=== PATIENT | male | born 1945 | race Caucasian/White ===

== ENCOUNTER 2017-06-26 08:00 | Outpatient (CLI) | payer MEDICARE | END 2017-06-26 08:01 | disposition home or self-care (01) | LOC: LAB.R 08:00 | PROVIDERS: ATTEND Internal Medicine | DX: E03.9 Hypothyroidism, unspecified (principal) | CPT/HCPCS: 84443 ==

== ENCOUNTER 2017-12-26 07:58 | Outpatient (CLI) | payer MEDICARE | END 2017-12-26 07:59 | disposition home or self-care (01) | LOC: LAB.R 07:58 | PROVIDERS: ATTEND Internal Medicine | DX: E03.9 Hypothyroidism, unspecified (principal) | CPT/HCPCS: 84443 ==

== ENCOUNTER 2018-05-11 08:00 | Outpatient (CLI) | payer MEDICARE ==
[2018-05-11 13:57] LABS: BASOPHILS % (AUTO) 0.8 %; EOSINOPHILS # (AUTO) 0.1 10^3/uL (0.0-0.7); EOSINOPHILS % (AUTO) 1.6 %; LYMPHOCYTES # (AUTO) 1.5 10^3/uL (1.5-3.5); LYMPHOCYTES % (AUTO) 28.3 %; MEAN CORPUSCULAR HEMOGLOBIN 33.3 pg (27.0-31.0); MEAN CORPUSCULAR HGB CONC 34.3 g/dL (32.0-36.0); MEAN PLATELET VOLUME 10.4 fL (7.4-11.4); MONOCYTES # (AUTO) 0.5 10^3/uL (0.0-1.0); MONOCYTES % (AUTO) 9.5 %; NEUTROPHILS # (AUTO) 3.1 10^3/uL (1.5-6.6); NEUTROPHILS % (AUTO) 59.8 %; PLT - PLATELET COUNT 179 10^3/uL (130-450); RED BLOOD COUNT 4.19 10^6/uL (4.70-6.10); RED CELL DISTRIBUTION WIDTH 13.4 % (12.0-15.0); WHITE BLOOD COUNT 5.2 x10^3/uL (4.8-10.8)
[2018-05-11 14:22] LABS: ALBUMIN 4.1 g/dL (3.2-5.5); ALBUMIN/GLOBULIN RATIO 1.6 (1.0-2.2); ALKALINE PHOSPHATASE 66 IU/L (42-121); ALT ALANINE AMINOTRANSFERASE 21 IU/L (10-60); AST ASPARTATE AMINOTRANSFERASE 34 IU/L (10-42); BILIRUBIN,TOTAL 0.7 mg/dL (0.2-1.0); BUN - BLOOD UREA NITROGEN 21 mg/dL (6-20); CALCIUM 8.9 mg/dL (8.5-10.3); CARBON DIOXIDE - CO2 23 mmol/L (21-32); CHLORIDE 104 mmol/L (101-111); CHOL/HDL RATIO 3.1 (<5.0); CHOLESTEROL 124 mg/dL; CREATININE 1.3 mg/dL (0.6-1.2); GFR - MDRD 54 (>89); GLUCOSE 84 mg/dL (70-100); HDL CHOLESTEROL 40 mg/dL; LDL CHOLESTEROL,CALCULATED 69 mg/dL; LDL/HDL RATIO 1.7 (<3.6); SODIUM 137 mmol/L (135-145); TOTAL PROTEIN 6.7 g/dL (6.7-8.2); VLDL CHOLESTEROL 15 mg/dL
[2018-05-12 12:11] LABS: HEPATITIS C ANTIBODY NON-REACTIVE (NON-REACTIVE)
== END 2018-05-11 23:59 | disposition home or self-care (01) ==
LOC: LAB.R 08:00
PROVIDERS: ATTEND Internal Medicine
DX: E03.9 Hypothyroidism, unspecified (principal); I25.10 Atherosclerotic heart disease of native coronary artery without angina pectoris; E78.5 Hyperlipidemia, unspecified; K21.9 Gastro-esophageal reflux disease without esophagitis
CPT/HCPCS: 80053; 80061; 83721; 84443; 85025; 86803

== ENCOUNTER 2018-07-22 13:23 | Outpatient (CLI) | payer MEDICARE ==
--- NOTE | 2018-07-22 16:10 | XRAY Report ---
Reason: DYSPHAGIA Procedure Date: 07/22/2018 Accession Number: [id number] / [id number] Procedure: FL - Modified Barium Swallow W/SP CPT Code: FULL RESULT: EXAM: MODIFIED BARIUM SWALLOW EXAM DATE: 07/22/2018 02:02 PM. CLINICAL HISTORY: DYSPHAGIA. COMPARISON: None. TECHNIQUE: Under the direction of speech pathology, patient swallowed various consistencies of barium under lateral fluoroscopic observation of the neck. Fluoroscopy Time: 1 minute 23 seconds. Number of Images: 73. FINDINGS: Swallowing Mechanism: Normal oral phase. Slight delay in initiation of swallow trigger with semisolid consistency with spill of material over the epiglottis. Once initiated, there was a normal swallowing reflex. Airway Protection: Normal epiglottic motion. No episodes of tracheal penetration or aspiration with all consistencies of barium. Pharynx: Normal. No significant vallecular or piriform sinus contrast pooling. Other: None. IMPRESSION: Normal modified barium swallow. No aspiration identified. RADIA
== END 2018-07-22 13:24 | disposition home or self-care (01) ==
LOC: DI 13:23
PROVIDERS: ATTEND Internal Medicine
DX: R13.10 Dysphagia, unspecified (principal)
CPT/HCPCS: 74230

== ENCOUNTER 2019-07-06 10:55 | Outpatient (CLI) | payer MEDICARE ==
[2019-07-06 11:29] LABS: BASOPHILS % (AUTO) 0.4 %; EOSINOPHILS # (AUTO) 0.1 10^3/uL (0.0-0.7); EOSINOPHILS % (AUTO) 1.2 %; HGB - HEMOGLOBIN 14.4 g/dL (14.0-18.0); LYMPHOCYTES % (AUTO) 20.4 %; MEAN CORPUSCULAR HEMOGLOBIN 32.7 pg (27.0-31.0); MEAN CORPUSCULAR HGB CONC 33.3 g/dL (32.0-36.0); MEAN PLATELET VOLUME 11.4 fL (7.4-11.4); MONOCYTES # (AUTO) 0.4 10^3/uL (0.0-1.0); MONOCYTES % (AUTO) 7.9 %; NEUTROPHILS # (AUTO) 3.5 10^3/uL (1.5-6.6); NEUTROPHILS % (AUTO) 69.9 %; PLT - PLATELET COUNT 206 10^3/uL (130-450); RED BLOOD COUNT 4.41 10^6/uL (4.70-6.10); RED CELL DISTRIBUTION WIDTH 12.5 % (12.0-15.0)
[2019-07-06 11:53] LABS: ALBUMIN 3.9 g/dL (3.2-5.5); ALBUMIN/GLOBULIN RATIO 1.6 (1.0-2.2); ALKALINE PHOSPHATASE 58 IU/L (42-121); ALT ALANINE AMINOTRANSFERASE 20 IU/L (10-60); AST ASPARTATE AMINOTRANSFERASE 24 IU/L (10-42); BILIRUBIN,TOTAL 1.1 mg/dL (0.2-1.0); BUN - BLOOD UREA NITROGEN 19 mg/dL (6-20); CALCIUM 9.1 mg/dL (8.5-10.3); CARBON DIOXIDE - CO2 27 mmol/L (21-32); CHLORIDE 102 mmol/L (101-111); CHOL/HDL RATIO 3.6 (<5.0); CHOLESTEROL 131 mg/dL; CREATININE 1.2 mg/dL (0.6-1.2); GFR - MDRD 59 (>89); GLUCOSE 93 mg/dL (70-100); HDL CHOLESTEROL 36 mg/dL; LDL CHOLESTEROL,CALCULATED 81 mg/dL; LDL/HDL RATIO 2.3 (<3.6); SODIUM 139 mmol/L (135-145); TOTAL PROTEIN 6.4 g/dL (6.7-8.2); VLDL CHOLESTEROL 14 mg/dL
[2019-07-06 12:43] LABS: PSA FREE 0.55 ng/mL (0.16-2.81)
[2019-07-06 12:44] LABS: PSA TOTAL 1.5 ng/mL (0.000-2.000)
== END 2019-07-06 10:56 | disposition home or self-care (01) ==
LOC: LAB 10:55
PROVIDERS: ATTEND Nurse Practitioner
DX: N28.9 Disorder of kidney and ureter, unspecified (principal); E03.9 Hypothyroidism, unspecified; I25.10 Atherosclerotic heart disease of native coronary artery without angina pectoris; E78.5 Hyperlipidemia, unspecified; K21.9 Gastro-esophageal reflux disease without esophagitis
CPT/HCPCS: 36415; 80053; 80061; 83721; 84153; 84154; 84443; 85025

== ENCOUNTER 2019-12-14 08:33 | Outpatient (CLI) | payer MEDICARE ==
[2019-12-14 09:37] LABS: ALT ALANINE AMINOTRANSFERASE 22 IU/L (10-60); AST ASPARTATE AMINOTRANSFERASE 25 IU/L (10-42); CHOL/HDL RATIO 3.6 (<5.0); CHOLESTEROL 115 mg/dL; CK- CREATINE KINASE 56 IU/L (22-269); HDL CHOLESTEROL 32 mg/dL; LDL CHOLESTEROL,CALCULATED 65 mg/dL; LDL CHOLESTEROL,DIRECT 58 mg/dL; VLDL CHOLESTEROL 18 mg/dL
== END 2019-12-14 08:34 | disposition home or self-care (01) ==
LOC: LAB 08:33
PROVIDERS: ATTEND Internal Medicine Cardiovascular Disease
DX: E78.5 Hyperlipidemia, unspecified (principal)
CPT/HCPCS: 36415; 80061; 82550; 83721; 84450; 84460

== ENCOUNTER 2020-08-23 16:51 | Observation (INO) | payer MEDICARE ==
[2020-08-23 17:33] LABS: BASOPHILS % (AUTO) 0.6 %; EOSINOPHILS # (AUTO) 0.1 10^3/uL (0.0-0.7); HCT - HEMATOCRIT 40.7 % (42.0-52.0); HGB - HEMOGLOBIN 13.6 g/dL (14.0-18.0); LYMPHOCYTES # (AUTO) 1.6 10^3/uL (1.5-3.5); LYMPHOCYTES % (AUTO) 30.6 %; MEAN CORPUSCULAR HEMOGLOBIN 33.5 pg (27.0-31.0); MEAN CORPUSCULAR HGB CONC 33.4 g/dL (32.0-36.0); MEAN CORPUSCULAR VOLUME 100.2 fL (80.0-94.0); MEAN PLATELET VOLUME 10.6 fL (7.4-11.4); MONOCYTES # (AUTO) 0.5 10^3/uL (0.0-1.0); MONOCYTES % (AUTO) 9.7 %; NEUTROPHILS # (AUTO) 2.9 10^3/uL (1.5-6.6); NEUTROPHILS % (AUTO) 56.9 %; PLT - PLATELET COUNT 209 10^3/uL (130-450); RED BLOOD COUNT 4.06 10^6/uL (4.70-6.10); RED CELL DISTRIBUTION WIDTH 12.7 % (12.0-15.0); WHITE BLOOD COUNT 5.1 x10^3/uL (4.8-10.8)
--- NOTE | 2020-08-23 17:36 | XRAY Report ---
PROCEDURE: Chest 1 View X-Ray INDICATIONS: Chest pain TECHNIQUE: One view of the chest was acquired. COMPARISON: None FINDINGS: Surgical changes and devices: None. Lungs and pleura: No pleural effusions or pneumothorax. Lungs are clear. Mediastinum: Mediastinal contours appear normal. Heart size is normal. Bones and chest wall: No suspicious bony lesions. Overlying soft tissues appear unremarkable. IMPRESSION: Normal for age, source of current symptoms is not seen. Reviewed by: Jose A Sr MD on 08/23/2020 4:34 PM [facility] Approved by: Jose A Sr MD on 08/23/2020 4:34 PM [facility] Station ID: [id number]
[2020-08-23 17:51] LABS: ALBUMIN/GLOBULIN RATIO 1.5 (1.0-2.2); CALCIUM 9.5 mg/dL (8.5-10.3); CREATININE 1.2 mg/dL (0.6-1.2); POTASSIUM 3.9 mmol/L (3.5-5.0); TOTAL PROTEIN 6.6 g/dL (6.7-8.2)
--- NOTE | 2020-08-23 18:17 | ED Physician Documentation ---
History of Present Illness - Stated complaint Stated Complaint: LIGHTHEADED,DISORIENTED,WEAKNESS - Chief complaint Chief Complaint: Neuro - Additonal information Additional information: 74-year-old male presents to the emergency department for evaluation of feeling faint and off balance. He reports that on at least 3 separate occasions over the last 24 hours he is walking and begins to veer to the left bumping into furniture or shelves at the grocery store. He denies a sensation of the room spinning. No history of similar in the past. He states that he has been having on and off headache for a long time but he cannot really determine how long this has been happening. Denies any previous history of CVA or stroke. He denies chest pain or shortness of breath. no falls or trauma. no fevers. no syncope. Does not feel "dizzy" or have the sensation of the room spinning pmh: paroxysmal atrial fib, cad s/p stent, gerd meds: 81 asa, atorvastatin, metoprolol, pantoprazole, levothyroxine Review of Systems Constitutional: denies: Fever, Chills Eyes: denies: Loss of vision, Decreased vision, Photophobia Ears: denies: Loss of hearing, Ear pain Nose: denies: Rhinorrhea / runny nose, Foreign Body Throat: denies: Dental pain / toothache, Oral lesions / sores, Sore throat Cardiac: denies: Chest pain / pressure, Palpitations, Pedal edema, Calf pain Respiratory: denies: Dyspnea, Cough GI: reports: Nausea. denies: Abdominal Pain, Vomiting, Constipation, Diarrhea : denies: Dysuria, Frequency, Hesitancy Skin: denies: Rash, Lesions Musculoskeletal: denies: Neck pain, Back pain Neurologic: reports: Generalized weakness. denies: Focal weakness, Numbness, Near syncope, Syncope, Seizure, Altered mental status, Other (off balance) PD PAST MEDICAL HISTORY - Past Medical History Past Medical History: Yes Cardiovascular: High cholesterol, Angina, Atrial fibrillation Endocrine/Autoimmune: HyPOthyroidism GI: GERD Other Past Medical History: Angina resolved after stent placement in - Past Surgical History Past Surgical History: Yes Cardiovascular: Coronary stent - Present Medications Home Medications: Ambulatory Orders Medication Instructions Recorded Confirmed Aspirin Chewable [[facility] 81 mg PO DAILY 08/23/20 08/23/20 Aspirin] Atorvastatin Calcium 40 mg PO DAILY 08/23/20 08/23/20 Levothyroxine [Synthroid] 25 mcg PO QDAC 08/23/20 08/23/20 Pantoprazole Sodium [Protonix] 40 mg PO DAILY 08/23/20 08/23/20 - Allergies Allergies/Adverse Reactions: Allergies Allergy/AdvReac Type Severity Reaction Status Date / Time No Known Drug Allergies Allergy Verified 08/23/20 17:01 - Social History Does the pt smoke?: No Smoking Status: Never smoker Does the pt drink ETOH?: No Does the pt have substance abuse?: No - Immunizations Immunizations are current?: Yes PD ED PE EXPANDED - General General: Alert, No acute distress, Well developed/nourished - HEENT HEENT: Atraumatic, PERRL, EOMI - Cardiac Cardiac: Regular Rate, Regular Rhythm, Radial strong equal, Pedal strong equal, Cap refill < 2 sec. No: Murmur Present - Respiratory Respiratory: Clear to ausultation marj. No: Distress, Labored - Abdomen Abdomen: Normal Bowel sounds. No: Tender to palpation - Derm Derm: Normal color, Warm and dry. No: Rash, Petecchiae, Purpura - Extremities Extremities: Normal. No: Deformity, Tenderness - Neuro Neuro: Alert and Oriented X 3, CNII-XII intact, Cerebellar nl, Normal gait, Normal finger nose, Normal speech - GCS Eye Opening: Spontaneous Motor: Obeys Commands Verbal: Oriented Total: 15 Results - Vitals Vitals: Vital Signs - 24 hr 08/23/20 08/23/20 08/23/20 16:55 17:38 18:11 Temperature 36.2 C L Heart Rate 66 56 L Heart Rate [ 62 Sitting] Heart Rate [ 58 L Standing] Heart Rate [ 52 L Supine] Respiratory 14 13 Rate Blood Pressure 146/92 H 130/86 H Blood Pressure 132/80 H [Sitting] Blood Pressure 137/80 H [Standing] Blood Pressure 135/80 H [Supine] O2 Saturation 100 99 08/23/20 19:00 Temperature Heart Rate 52 L Heart Rate [ Sitting] Heart Rate [ Standing] Heart Rate [ Supine] Respiratory 19 Rate Blood Pressure 136/77 H Blood Pressure [Sitting] Blood Pressure [Standing] Blood Pressure [Supine] O2 Saturation 100 Oxygen O2 Source Room air - EKG (time done) 1715 Rate: Rate (enter#) (56) Rhythm: NSR, Other (with PAC) Kite: Normal Intervals: Normal GA QRS: Normal Ischemia: Normal ST segments Compare to prior EKG: Old EKG unavailable Computer interpretation: Agree with computer - Labs Labs: Laboratory Tests 08/23/20 08/23/20 08/23/20 17:24 17:24 17:24 WBC 5.1 RBC 4.06 L Hgb 13.6 L Hct 40.7 L MCV 100.2 H MCH 33.5 H MCHC 33.4 RDW 12.7 Plt Count 209 MPV 10.6 Neut # (Auto) 2.9 Lymph # (Auto) 1.6 [place] # (Auto) 0.5 Eos # (Auto) 0.1 Baso # (Auto) 0.0 Absolute Nucleated RBC 0.00 Nucleated RBC % 0.0 Sodium 136 Potassium 3.9 Chloride 99 L Carbon Dioxide 28 Anion Gap 9.0 BUN 15 Creatinine 1.2 Estimated GFR (MDRD) 59 L Glucose 87 Calcium 9.5 Magnesium Total Bilirubin 1.0 AST 24 ALT 21 Alkaline Phosphatase 63 Troponin I High Sens 5.1 B-Natriuretic Peptide Total Protein 6.6 L Albumin 4.0 Globulin 2.6 Albumin/Globulin Ratio 1.5 Lipase 32 TSH 08/23/20 08/23/20 08/23/20 18:04 18:04 18:04 WBC RBC Hgb Hct MCV MCH MCHC RDW Plt Count MPV Neut # (Auto) Lymph # (Auto) [place] # (Auto) Eos # (Auto) Baso # (Auto) Absolute Nucleated RBC Nucleated RBC % Sodium Potassium Chloride Carbon Dioxide Anion Gap BUN Creatinine Estimated GFR (MDRD) Glucose Calcium Magnesium 2.1 Total Bilirubin AST ALT Alkaline Phosphatase Troponin I High Sens B-Natriuretic Peptide 66 Total Protein Albumin Globulin Albumin/Globulin Ratio Lipase TSH 2.92 - Rads (name of study) CT angio head Radiology: Final report received (Negative CT angiography of the head. No acute process.) Angio neck Radiology: Final report received (Negative CT angiography of the neck. No acute process.) PD MEDICAL DECISION MAKING - ED course Complexity details: reviewed results, re-evaluated patient, considered differential, d/w patient ED course: 74-year-old male presents the emergency department with 3-4 episodes of ataxia over the last 2 days. He reports that he is walking and then begins to veer to the left despite trying to keep a straight gait. He denies any palpitations chest pain or shortness of air while this happens. He denies a sensation of the room spinning. Here on exam his screening labs are unremarkable including a high-sensitivity troponin and BNP. EKG was sinus and nonischemic. Chest x-ray showed no acute cardiopulmonary abnormality. I was unable to reproduce the ataxia on my exam. His cerebellar and neuro exam were unremarkable. I did proceed to do a CT angio of the head and neck that also showed no acute findings however the concern remains for a posterior circulation syndrome vs TIA or stroke liek symptoms. I have spoke with Dr. Temple who agrees to bring the patient in for observation and further evaluation Departure - Departure Disposition: ED Place in Observation Clinical Impression: Ataxia, Stroke-like symptoms
[2020-08-23] MEDS ORDERED: IOVERSOL 320 100 ML VIAL IVP ONE ×2 (18:24→18:48)
--- NOTE | 2020-08-23 18:59 | CT Report ---
PROCEDURE: ANGIO HEAD W/WO INDICATIONS: L sided facial droop CONTRAST: IV CONTRAST: Optiray 320 ml: 100 PO CONTRAST: *NO PO CONTRAST TECHNIQUE: Precontrast 4.5 mm thick angled axial sections acquired from the foramen magnum to the vertex. Afte r the administration of intravenous contrast, 1 mm thick sections acquired through the [place] of Will is. Postcontrast 4.5 mm thick sections then re-acquired from the foramen magnum to the vertex. 3-di mensional xvqseyf-zlvadskgy-xavkypreip (MIP) and/or volume rendering reformats were acquired of the c entral intracranial vasculature. For radiation dose reduction, the following was used: automated ex posure control, adjustment of mA and/or kV according to patient size. COMPARISON: None FINDINGS: Image quality: Excellent. Anterior circulation: Intracranial internal carotid arteries are normal in size and flow. The flow within the paired anterior cerebral arteries is normal and symmetric. The flow within the middle cer ebral arteries is normal and symmetric. The anterior communicating artery is seen. No aneurysms are seen. Posterior circulation: Visualized portions of the vertebral arteries demonstrate normal caliber, and join to form a normal appearing basilar artery. Flow within the posterior cerebral arteries is norm al and symmetric. No aneurysms are seen. CSF spaces: Ventricles are normal in size and shape. Basal cisterns are patent. No extra-axial flu id collections. Brain: No midline shift. No intracranial bleeds or masses. Stock-white matter interface appears int act. Skull and face: Calvarium and facial bones appear intact, without suspicious lesions. Sinuses: Visualized sinuses and mastoids are clear. IMPRESSION: Negative CT angiography of the head. No acute process. Reviewed by: Alfredo Medina MD on 08/23/2020 6:58 PM PST Approved by: Alfredo Medina MD on 08/23/2020 6:58 PM PST Station ID: [id number]
--- NOTE | 2020-08-23 19:01 | CT Report ---
PROCEDURE: ANGIO NECK W INDICATIONS: L sided facial droop, L neck pain CONTRAST: IV CONTRAST: Optiray 320 ml: 80 PO CONTRAST: *NO PO CONTRAST TECHNIQUE: After the administration of intravenous contrast, 1.5 mm axial sections acquired from the aortic arch to the [place] of [place]. Coronal 3-D maximum intensity projection (MIP) and/or volume rendering ref ormats were then performed. For radiation dose reduction, the following was used: automated exposur e control, adjustment of mA and/or kV according to patient size. COMPARISON: None. FINDINGS: Image quality: Excellent. Carotid system: The great vessels demonstrate a conventional anatomy as they arise from the aortic a rch. The origins of the common carotid arteries appear patent. The common carotid arteries demonstr ate normal calibers and courses. There is mild, roughly 10% calcific origin stenosis of the bilateral internal carotid arteries, left right greater than left. Internal carotid arteries are otherwise pat ent. Posterior circulation: The origins of the vertebral arteries appear patent. The more superior porti ons of the vertebral arteries demonstrate normal course and caliber. They join to form a normal appe aring basilar artery. Soft tissues: Visualized neck soft tissues demonstrate no suspicious abnormalities. The thyroid gla nd is normal in size. Bones: No suspicious bony lesions. Visualized cervical spine appears normally aligned. IMPRESSION: Negative CT angiography of the neck. No acute process. The estimate of stenosis included in the report of the imaging study was calculated using the NASCET method Reviewed by: Alfredo Medina MD on 08/23/2020 7:00 PM PST Approved by: Alfredo Medina MD on 08/23/2020 7:00 PM PST Station ID: [id number]
[2020-08-23] MEDS ORDERED: SODIUM CHLORIDE FLUSH 0.9% 10 ML SYRINGE IVP PRN (20:40)
[2020-08-23] MEDS ORDERED: ACETAMINOPHEN 325 MG TABLET PO PRN (20:40)
[2020-08-23] MEDS ORDERED: ONDANSETRON 4 MG/2 ML VIAL IVP PRN (20:40)
[2020-08-23] MEDS ORDERED: ATORVASTATIN 40 MG TABLET PO SCH (21:00)
[2020-08-23 21:48] LABS: B. PARAPERTUSSIS- RESP PCR PAN NOT DETECTED; B. PERTUSSIS- RESP PCR PANEL NOT DETECTED; C. PNEUMONIAE- RESP PCR PANEL NOT DETECTED; CORONAVIRUS 229E-RESP PCR NOT DETECTED; CORONAVIRUS HKU1-RESP PCR NOT DETECTED; CORONAVIRUS NL63-RESP PCR NOT DETECTED; CORONAVIRUS OC43-RESP PCR NOT DETECTED; HUMAN METAPNEUMOVIRUS NOT DETECTED; INFLUENZA A- RESP PCR PANEL NOT DETECTED; INFLUENZA B - RESP PCR PANEL NOT DETECTED; M. PNEUMONIAE- RESP PCR PANEL NOT DETECTED; PARAINFLUENZA VIRUS 1 NOT DETECTED; PARAINFLUENZA VIRUS 2 NOT DETECTED; PARAINFLUENZA VIRUS 3 NOT DETECTED; PARAINFLUENZA VIRUS 4 NOT DETECTED; RHINOVIRUS/ENTEROVIRUS NOT DETECTED; RSV- RESP PCR PANEL NOT DETECTED; SARS-CoV-2 -RESP PCR PANEL NOT DETECTED
[2020-08-23] MEDS: FAMOTIDINE 20 MG TABLET PO SCH (21:59)
[2020-08-23] MEDS ORDERED: ASPIRIN CHEW 81 MG TABLET PO SCH (22:29)
[2020-08-24] MEDS: SODIUM CHLORIDE FLUSH 0.9% 10 ML SYRINGE IVP SCH ×2 (00:34→07:45)
--- NOTE | 2020-08-24 01:04 | HISTORY & PHYSICAL EXAMINATION ---
DATE OF SERVICE: 08/23/2020 Physician: Tiffanie Denton MD HISTORY OF PRESENT ILLNESS: This is a 74-year-old white male with a history of CAD with coronary stenting, hyperlipidemia, hypothyroidism, and paroxysmal atrial fibrillation, on daily aspirin. The patient presents with a history of intermittent abnormal gait causing him to veer to the left on 4 repeat occasions that last approximately 15 minutes. With today's event, he presented to the emergency room. He was found to be in sinus rhythm, not in his paroxysmal atrial fibrillation and none of his symptoms recurred while in the ER. He underwent a head CT that did not show acute stroke. The patient is being placed in Observation status for workup of stroke-like symptoms/TIA versus a CVA, with plan for telemetry and Echo and brain MRI. PAST MEDICAL HISTORY 1. Hyperlipidemia. 2. Hypothyroidism. 3. Paroxysmal atrial fibrillation. ALLERGIES: NONE. MEDICATIONS 1. Aspirin 81 mg every night. 2. Lipitor 40 mg every night. 3. Levothyroxine 25 mcg daily. 4. Protonix 40 mg daily. FAMILY HISTORY: No inherited diseases. SOCIAL HISTORY: He is a nonsmoker, drinks no alcohol. No illicit drug use history. REVIEW OF SYSTEMS: He describes a history of prior angina that resolved after coronary stenting, which was done in 2002. He is compliant with his medications. He has never had workup for a stroke before. A comprehensive review of systems was done and the pertinent positives are listed, the rest are negative. PHYSICAL EXAM GENERAL: Elderly white male who is sleeping, but awakens easily. VITAL SIGNS: Blood pressure is 136/77, heart rate 50-56 in sinus rhythm. He had a set of orthostatic vital signs done that are negative with stable heart rates and blood pressures. HEENT: Unremarkable. There is no nystagmus. NECK: No JVD or carotid bruits. CHEST: Clear. CARDIOVASCULAR: Normal. No murmurs. ABDOMEN: Soft, nontender. No organomegaly. EXTREMITIES: No clubbing, cyanosis, edema. NEUROLOGIC: Grossly intact currently. LABORATORY DATA: Normal electrolytes. Normal BUN and creatinine. Normal liver tests. Normal troponin of 5.1. Normal BNP of 66. Normal TSH of 2.92. Normal white count of 5.1, hemoglobin is 13.6 with an MCV of 100, normal platelet count of 209. No INR was done. His [employer] test was negative for COVID and all other parameters also neg. EKG: Normal sinus rhythm, PACs, otherwise within normal limits. IMAGING: Chest x-ray: No active cardiopulmonary disease. Head CTA and neck CTA: showed no stroke, no occluded vessels. IMPRESSION 1. Transient ischemic attack. 2. Stroke-like symptoms. 3. Macrocytic anemia. 4. Paroxysmal atrial fibrillation. 5. Hypothyroidism. 6. History of hyperlipidemia. 7. History of CAD with coronary stenting. PLAN: Place the patient in Observation status, on telemetry. Obtain a brain MRI. Obtain a resting Echocardiogram with bubble study for TIA/stroke workup. Plan a PT evaluation to evaluate the gait. We will continue with his Lipitor, Synthroid and daily aspirin. We will check a B12 and folate level because of the macrocytosis. Also, check fasting lipids and treat per guidelines. CODE STATUS: FULL CODE. DEEP VENOUS THROMBOSIS PROPHYLAXIS: SCDs. ATTESTATION: Patient is expected to be discharged or transferred to another facility within 96 hours: Yes. cc: CHET Torre NP-C TD: 08/23/2020 23:41 MINERVA
[2020-08-24 05:04] LABS: BASOPHILS % (AUTO) 0.4 %; EOSINOPHILS # (AUTO) 0.1 10^3/uL (0.0-0.7); EOSINOPHILS % (AUTO) 2.4 %; HCT - HEMATOCRIT 38.9 % (42.0-52.0); HGB - HEMOGLOBIN 13.1 g/dL (14.0-18.0); LYMPHOCYTES # (AUTO) 1.9 10^3/uL (1.5-3.5); MEAN CORPUSCULAR HEMOGLOBIN 33.6 pg (27.0-31.0); MEAN CORPUSCULAR HGB CONC 33.7 g/dL (32.0-36.0); MEAN CORPUSCULAR VOLUME 99.7 fL (80.0-94.0); MONOCYTES # (AUTO) 0.5 10^3/uL (0.0-1.0); MONOCYTES % (AUTO) 8.6 %; NEUTROPHILS # (AUTO) 2.9 10^3/uL (1.5-6.6); NEUTROPHILS % (AUTO) 53.4 %; PLT - PLATELET COUNT 207 10^3/uL (130-450); RED CELL DISTRIBUTION WIDTH 12.6 % (12.0-15.0); WHITE BLOOD COUNT 5.4 x10^3/uL (4.8-10.8)
[2020-08-24 05:26] LABS: BUN - BLOOD UREA NITROGEN 18 mg/dL (6-20); CALCIUM 8.8 mg/dL (8.5-10.3); CARBON DIOXIDE - CO2 27 mmol/L (21-32); CHLORIDE 103 mmol/L (101-111); CHOL/HDL RATIO 3.1 (<5.0); CHOLESTEROL 110 mg/dL; CREATININE 1.1 mg/dL (0.6-1.2); GFR - MDRD 65 (>89); GLUCOSE 85 mg/dL (70-100); HDL CHOLESTEROL 35 mg/dL; LDL CHOLESTEROL,CALCULATED 63 mg/dL; LDL/HDL RATIO 1.8 (<3.6); POTASSIUM 3.9 mmol/L (3.5-5.0); SODIUM 137 mmol/L (135-145); TRIGLYCERIDES 59 mg/dL; VLDL CHOLESTEROL 12 mg/dL
[2020-08-24 06:00] LABS: FOLATE 15.67 ng/mL (5.90 - >24.8)
[2020-08-24] MEDS ORDERED: LEVOTHYROXINE 25 MCG TABLET PO SCH (07:00)
[2020-08-24] MEDS: FAMOTIDINE 20 MG TABLET PO SCH (07:45)
[2020-08-24] MEDS ORDERED: ASPIRIN CHEW 81 MG TABLET PO SCH (09:00)
--- NOTE | 2020-08-24 10:56 | MRI Report ---
PROCEDURE: Brain W/O INDICATIONS: Ataxia, recurrent TECHNIQUE: Noncontrast axial T1 spin echo, axial T2 fast spin echo, sagittal and axial FLAIR, coronal T2 fast sp in echo, axial gradient echo, axial diffusion and ADC through the brain. COMPARISON: None. FINDINGS: Image quality: Excellent. CSF Spaces: Basal cisterns are patent. No extra-axial fluid collections. Ventricles are normal in size and shape. Brain: Mild global cerebral volume loss and chronic microvascular ischemic change. No intracranial m asses or hemorrhage. Stock/white matter interface is normal. Brainstem appears normal. Diffusion-we ighted images demonstrate no acute ischemic insult. No chronic ischemic insults. Normal intravascul ar flow voids are present. Skull and face: Calvarium has normal marrow signal. Orbits appear normal. Sinuses: Sinuses and mastoids are clear. IMPRESSION: No acute intracranial finding. Mild global cerebral volume loss and mild chronic microvascular ischemic changes. Reviewed by: Peewee Gonzales MD on 08/24/2020 10:55 AM [facility] Approved by: Peewee Gonzales MD on 08/24/2020 10:55 AM [facility] Station ID: [id number]
--- NOTE | 2020-08-24 15:51 | Discharge Plan ---
Discharge Plan Problem Reviewed?: Yes Disposition: Home, Self Care Condition: Stable Diet: Regular Activity Restrictions: Activity as Tolerated Shower Restrictions: No (fall precaution) Instruction Topics: Dizziness Fainting Poss Causes, Dehydration, ED Near Syncope Unkn Health Concerns: nearly syncope and dizziness Plan of Treatment: Your tests including MRI and CTA of brain, CTA of neck, EKG, ECHO are unremarkable, as we discussed, you may keep hydration and on time to have nutrition, special when you work on your project, followup with your crm coordinator as out-pt to monitor you. Care Goals: stabilization and improvement of your medical conditions Assessment: discussed the care plan with you, answered questions, you understood. Additional Instructions or Follow Up instructions: You may followup with your PCP in two weeks, followup with your crm coordinator as out-pt. Should your symptoms return or worsen, you may present ER or call 911 for help. No Smoking: If you smoke, Please STOP! Call for help. Follow-up with: Vikki Catalan ARNP, DIALYSIS CLINICAL MANAGER-C [Primary Care Provider] -
--- NOTE | 2020-08-24 16:06 | DISCHARGE SUMMARY ---
Discharge Summary Admit Date: 08/23/20 Discharge Date: 08/24/20 Discharging Provider: Travis Parry Primary Care Provider: Vikki Stewart Condition at Discharge: Stable Discharge Disposition: 01 Home, Self Care Discharge Facility Name: home - DIAGNOSES Discharge Diagnoses with Status of Each Condition: 1, TIA Patient's symptoms of leaning on left side was subsided in the hospital. PT evaluation and treated for pt, pt presents today no observed mobility deficits, with normal balance and gait with normal strength and ROM. Imaging study including CTA of the head, MRI of the head, CTA of the neck, echo all show unremarkable. Patient report when he was doing home project, he forgets to eating and drink of the water, then he become some kind of dizziness and leaning in the left side. Advised the patient keep hydration and on time eating for enough nutrition special when he was doing in the project Follow-up with PCP or neurologist if continue has this kind of symptoms. 2, paroxysmal atrial fibrillation Stable, Home medication 3, hypothyroidism TSH is normal, resume home medication 4, HLD Resume home medication 5, hx of CAD with coronary stenting Stable, resume home medication 6, Bradycardia Patient's the lowest heart rate is 49 in the hospital. Patient denies any dizziness, chest pain, palpitation. 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 advise pt continue followup with gem expert . - HPI History of Present Illness: This is a 74-years old male with a past medical history significant for of CAD with coronary stenting, hyperlipidemia, hypothyroidism, paroxysmal a fibrillation, Who present to ER complain intermittent abnormal gait causing him to lean on the left side. He Reported he had four recurrent episode for leaning at the left side. Patient had CTA of the head, CTA of the neck which all show unremarkable. Patient is admitted for TIA rule out. - HOSPITAL COURSE Hospital Course: Pt Is admitted for evaluation of TIA. Patient report he had 4 times of leaning on the left side intermittently. Patient has imaging studies including echo, EKG, MRI and CTA of the head, CTA of the neck, which are all unremarkable. Patient symptoms was subsided in the hospital. PT evaluated and treated the dorita ent, recommended patient can be DC home safely. - ALLERGIES Allergies/Adverse Reactions: Allergies Allergy/AdvReac Type Severity Reaction Status Date / Time No Known Drug Allergies Allergy Verified 08/23/20 17:01 - MEDICATIONS Home Medications: Ambulatory Orders Medication Instructions Recorded Confirmed Aspirin Chewable [[facility] 81 mg PO DAILY 08/23/20 08/23/20 Aspirin] Atorvastatin Calcium 40 mg PO DAILY 08/23/20 08/23/20 Levothyroxine [Synthroid] 25 mcg PO QDAC 08/23/20 08/23/20 Pantoprazole Sodium [Protonix] 40 mg PO DAILY 08/23/20 08/23/20 - PHYSICAL EXAM AT DISCHARGE General Appearance: positive: No acute distress, Alert. negative: Lethargic Eyes Bilateral: positive: Normal inspection, PERRL, No lid inflammation ENT: positive: ENT inspection nml, No signs of dehydration. negative: Purulent nasal drainage Neck: positive: Nml inspection, Trachea midline. negative: Thyromegaly, Tracheal deviation Respiratory: positive: Chest non-tender, No respiratory distress. negative: Wheezes, Rales Cardiovascular: positive: Regular rate & rhythm, No murmur, Bradycardia. negative: Tachycardia, Systolic murmur, Diastolic murmur Peripheral Pulses: positive: 2+ Abdomen: positive: Non-tender, Nml bowel sounds, No distention. negative: Tenderness, Guarding, Rebound Back: positive: Nml inspection Skin: positive: Color nml, Warm, Dry. negative: Cyanosis, Diaphoresis, Pallor Extremities: positive: Non-tender, Full ROM, Nml appearance. negative: Calf tenderness Neurologic/Psychiatric: positive: Oriented x3, Motor nml, Sensation nml, Mood/affect nml. negative: Weakness, Sensory loss, Facial droop, Slurred/abnml speech, Depressed mood/affect - LABS Result Diagrams: 08/24/20 04:42 08/24/20 04:42 - FOLLOW UP Follow Up: Your tests including MRI and CTA of brain, CTA of neck, EKG, ECHO are unremarkable, as we discussed, you may keep hydration and on time to have nutrition, special when you work on your project, followup with your gem expert as out-pt to monitor you. You may followup with your PCP in two weeks, followup with your gem expert, and neurologist as out-pt. Should your symptoms return or worsen, you may present ER or call 911 for help. - TIME SPENT Time Spent in Discharge (Minutes): 30
[2020-08-24 16:19] VITALS: BP 114/95
== END 2020-08-24 17:07 | disposition home or self-care (01) ==
LOC: ED 16:51 → MS2 20:40
PROVIDERS: ADMIT Internal Medicine; ATTEND Nurse Practitioner Gerontology
DX: G45.9 Transient cerebral ischemic attack, unspecified (principal); I48.0 Paroxysmal atrial fibrillation; E03.9 Hypothyroidism, unspecified; E78.5 Hyperlipidemia, unspecified; R00.1 Bradycardia, unspecified; D53.9 Nutritional anemia, unspecified; I25.10 Atherosclerotic heart disease of native coronary artery without angina pectoris; Z20.822 Contact with and (suspected) exposure to COVID-19; Z95.5 Presence of coronary angioplasty implant and graft; Z79.82 Long term (current) use of aspirin; Z79.899 Other long term (current) drug therapy
CPT/HCPCS: 36415; 70496; 70498; 70551; 71045; 80048; 80053; 80061; 82607; 82746; 83690; 83735; 83880; 84443; 84484; 85025; 87631; 93005; 93306; 97161; 99284; 99285; A9270; G0378; Q9967; 0202U; 83721

== ENCOUNTER 2021-10-09 09:02 | Outpatient (CLI) | payer MEDICARE ==
[2021-10-09 09:19] LABS: BASOPHILS % (AUTO) 0.6 %; EOSINOPHILS # (AUTO) 0.1 10^3/uL (0.0-0.7); EOSINOPHILS % (AUTO) 1.5 %; HCT - HEMATOCRIT 38.1 % (42.0-52.0); HGB - HEMOGLOBIN 13.1 g/dL (14.0-18.0); LYMPHOCYTES % (AUTO) 21.8 %; MEAN CORPUSCULAR HEMOGLOBIN 33.9 pg (27.0-31.0); MEAN CORPUSCULAR HGB CONC 34.4 g/dL (32.0-36.0); MEAN CORPUSCULAR VOLUME 98.7 fL (80.0-94.0); MEAN PLATELET VOLUME 10.3 fL (7.4-11.4); MONOCYTES # (AUTO) 0.3 10^3/uL (0.0-1.0); MONOCYTES % (AUTO) 7.1 %; NEUTROPHILS # (AUTO) 3.3 10^3/uL (1.5-6.6); NEUTROPHILS % (AUTO) 68.8 %; PLT - PLATELET COUNT 194 10^3/uL (130-450); RED BLOOD COUNT 3.86 10^6/uL (4.70-6.10); RED CELL DISTRIBUTION WIDTH 12.7 % (12.0-15.0); WHITE BLOOD COUNT 4.8 x10^3/uL (4.8-10.8)
[2021-10-09 09:39] LABS: ALBUMIN 3.7 g/dL (3.2-5.5); ALBUMIN/GLOBULIN RATIO 1.4 (1.0-2.2); ALKALINE PHOSPHATASE 58 IU/L (42-121); ALT ALANINE AMINOTRANSFERASE 20 IU/L (10-60); AST ASPARTATE AMINOTRANSFERASE 25 IU/L (10-42); BILIRUBIN,DIRECT 0.2 mg/dL (0.1-0.5); BILIRUBIN,TOTAL 1.3 mg/dL (0.2-1.0); BUN - BLOOD UREA NITROGEN 19 mg/dL (6-20); CALCIUM 8.9 mg/dL (8.5-10.3); CARBON DIOXIDE - CO2 27 mmol/L (21-32); CHLORIDE 103 mmol/L (101-111); CHOL/HDL RATIO 3.1 (<5.0); CHOLESTEROL 115 mg/dL; CREATININE 1.1 mg/dL (0.6-1.2); GFR - MDRD 65 (>89); GLUCOSE 84 mg/dL (70-100); HDL CHOLESTEROL 37 mg/dL; LDL CHOLESTEROL,CALCULATED 67 mg/dL; LDL/HDL RATIO 1.8 (<3.6); POTASSIUM 4.4 mmol/L (3.5-5.0); SODIUM 139 mmol/L (135-145); TOTAL PROTEIN 6.3 g/dL (6.7-8.2); TRIGLYCERIDES 54 mg/dL; VLDL CHOLESTEROL 11 mg/dL
[2021-10-09 09:51] LABS: THYROID STIMULATING HORMONE 3.41 uIU/mL (0.34-5.60)
== END 2021-10-09 09:03 | disposition home or self-care (01) ==
LOC: LAB 09:02
PROVIDERS: ATTEND Registered Nurse
DX: N28.9 Disorder of kidney and ureter, unspecified (principal); E78.5 Hyperlipidemia, unspecified; B35.1 Tinea unguium
CPT/HCPCS: 36415; 80053; 80061; 82248; 83721; 84443; 85025

== ENCOUNTER 2022-04-13 16:05 | Outpatient (CLI) | payer MEDICARE | END 2022-04-13 23:59 | disposition short-term general hospital (02) | LOC: EMS 16:05 | DX: R07.1 Chest pain on breathing (principal) | CPT/HCPCS: A0425; A0427 ==

== ENCOUNTER 2022-05-10 09:19 | Emergency (ER) | payer MEDICARE ==
--- OUTSIDE RECORDS SUMMARY | 2022-05-10 10:01 | EXTERNAL MEDICAL SUMMARY RPT | Continuity of Care Document ---
:1945 Author Organization [facility] Address [address] [place] [address] Phone Care Team Providers Name Role Phone Unavailable Unavailable Unavailable Cynthia Contreras Unavailable Unavailable Allergies No information. Encounters No information. Functional Status No information. Immunizations No information. Medications date description facility [id number] NITROGLYCERIN All [id number] ASPIRIN All Problems No information. Procedures date description facility [id number] Visit Code Hold All [id number]+0000 EKG Office Complete All [id number]+0000 Med Administration (PO-SL-IN-FL) All Results/Labs No information. Social History No information. Vital Signs date measurement value units [id number]+0000 BMI BMI 23.06 kg/m2 [id number]+0000 BP_diastolic BP_diastolic 55 mmHg [id number]+0000 BP_diastolic BP_diastolic 67 mmHg [id number]+0000 BP_systolic BP_systolic 114 mmHg 37877069724470+0000 BP_systolic BP_systolic 115 mmHg [id number]+0000 heart_rate heart_rate 67 /min [id number]+0000 heart_rate heart_rate 67|| comple sylvia [id number]+0000 height_metric height_metric 180.49 cm 04662107534401+0000 height_standard height_standard 71.06 in [id number]+0000 respiration_rate respiration_rate 18 (units unknown) 12284575381300+0000 respiration_rate respiration_rate 18 /min 74357665173818+0000 temperature_metri temperature_metri 37.22 C c c 98925818792176+0000 temperature_stand temperature_stand 99 F justin justin [id number]+0000 weight_metric weight_metric 74.84 kg 82317983357204+0000 weight_standard weight_standard 165 lb"
[2022-05-10 10:08] LABS: BASOPHILS % (AUTO) 0.3 %; EOSINOPHILS # (AUTO) 0.1 10^3/uL (0.0-0.7); EOSINOPHILS % (AUTO) 0.6 %; HCT - HEMATOCRIT 38.2 % (42.0-52.0); HGB - HEMOGLOBIN 12.5 g/dL (14.0-18.0); LYMPHOCYTES # (AUTO) 0.8 10^3/uL (1.5-3.5); LYMPHOCYTES % (AUTO) 8.4 %; MEAN CORPUSCULAR HEMOGLOBIN 32.1 pg (27.0-31.0); MEAN CORPUSCULAR HGB CONC 32.7 g/dL (32.0-36.0); MEAN CORPUSCULAR VOLUME 98.2 fL (80.0-94.0); MONOCYTES % (AUTO) 10.1 %; NEUTROPHILS # (AUTO) 7.5 10^3/uL (1.5-6.6); NEUTROPHILS % (AUTO) 80.3 %; PLT - PLATELET COUNT 300 10^3/uL (130-450); RED BLOOD COUNT 3.89 10^6/uL (4.70-6.10); RED CELL DISTRIBUTION WIDTH 12.3 % (12.0-15.0); WHITE BLOOD COUNT 9.4 x10^3/uL (4.8-10.8)
[2022-05-10 10:24] LABS: ALBUMIN 3.3 g/dL (3.2-5.5); ALBUMIN/GLOBULIN RATIO 0.9 (1.0-2.2); BILIRUBIN,TOTAL 0.8 mg/dL (0.2-1.0); CALCIUM 9.4 mg/dL (8.5-10.3); CREATININE 1.1 mg/dL (0.6-1.2); POTASSIUM 4.1 mmol/L (3.5-5.0)
--- NOTE | 2022-05-10 10:24 | XRAY Report ---
PROCEDURE: Chest 2 View X-Ray INDICATIONS: cough TECHNIQUE: 2 views of the chest were acquired. COMPARISON: 08/23/2020 FINDINGS: Surgical changes and devices: None. Lungs and pleura: Interval development of small bilateral pleural effusions and mild bibasilar atelec tasis. Mediastinum: Mediastinal contours are normal. Heart size is normal. Bones and chest wall: No suspicious bony abnormalities. Soft tissues appear unremarkable. IMPRESSION: Mild bibasilar atelectasis, small bilateral pleural effusions. Reviewed by: Kendrick White MD on 05/10/2022 10:22 AM [facility] Approved by: Kendrick White MD on 05/10/2022 10:22 AM [facility] Station ID: [id number]
[2022-05-10 11:12] LABS: B. PARAPERTUSSIS- RESP PCR PAN NOT DETECTED; B. PERTUSSIS- RESP PCR PANEL NOT DETECTED; C. PNEUMONIAE- RESP PCR PANEL NOT DETECTED; CORONAVIRUS 229E-RESP PCR NOT DETECTED; CORONAVIRUS HKU1-RESP PCR NOT DETECTED; CORONAVIRUS NL63-RESP PCR NOT DETECTED; CORONAVIRUS OC43-RESP PCR NOT DETECTED; HUMAN METAPNEUMOVIRUS NOT DETECTED; INFLUENZA A- RESP PCR PANEL NOT DETECTED; INFLUENZA B - RESP PCR PANEL NOT DETECTED; M. PNEUMONIAE- RESP PCR PANEL NOT DETECTED; PARAINFLUENZA VIRUS 1 NOT DETECTED; PARAINFLUENZA VIRUS 2 NOT DETECTED; PARAINFLUENZA VIRUS 3 NOT DETECTED; PARAINFLUENZA VIRUS 4 NOT DETECTED; RHINOVIRUS/ENTEROVIRUS NOT DETECTED; RSV- RESP PCR PANEL NOT DETECTED; SARS-CoV-2 -RESP PCR PANEL NOT DETECTED
--- NOTE | 2022-05-10 12:48 | ED Physician Documentation ---
History of Present Illness - Stated complaint Stated Complaint: COUGH - Chief complaint Chief Complaint: Resp - History obtained from History obtained from: Patient, Family - History of Present Illness Timing: How many weeks ago (4) Pain level max: 3 Pain level now: 3 - Additonal information Additional information: Patient is a 76-year-old male who presents to the emergency department with a cough x4 weeks. He states he was recently hospitalized at [facility] for pericarditis. He states he has been on colchicine. His incident response specialist that he is following with is at [facility] in [place]. He denies any fevers or chills. States the cough is mostly dry. He states he is starting to get a small amount of chest pain similar to when the pericarditis started. Review of Systems Constitutional: denies: Fever, Chills Nose: denies: Rhinorrhea / runny nose, Congestion Cardiac: denies: Palpitations Respiratory: reports: Cough. denies: Dyspnea, Wheezing GI: denies: Abdominal Pain, Nausea, Vomiting, Diarrhea : denies: Dysuria Skin: denies: Rash Musculoskeletal: denies: Neck pain, Back pain Neurologic: denies: Headache PD PAST MEDICAL HISTORY - Past Medical History Cardiovascular: High cholesterol, Angina, Atrial fibrillation Endocrine/Autoimmune: HyPOthyroidism GI: GERD - Past Surgical History Past Surgical History: Yes Cardiovascular: Coronary stent - Present Medications Home Medications: Ambulatory Orders Medication Instructions Recorded Confirmed Aspirin Chewable [[facility] [place] 81 mg PO DAILY 08/23/20 08/23/20 Aspirin] Atorvastatin Calcium 40 mg PO DAILY 08/23/20 08/23/20 Levothyroxine [Synthroid] 25 mcg PO QDAC 08/23/20 08/23/20 Pantoprazole Sodium [Protonix] 40 mg PO DAILY 08/23/20 08/23/20 Benzonatate [Tessalon] 200 mg PO TID PRN #30 cap 05/10/22 Codeine Phosphate/Guaifenesin 5 ml PO Q6H PRN #60 ml 05/10/22 [Guaifen-Codeine 100-10 mg/5 ml] Furosemide [Lasix] 20 mg PO DAILY #7 tablet 05/10/22 - Allergies Allergies/Adverse Reactions: Allergies Allergy/AdvReac Type Severity Reaction Status Date / Time No Known Drug Allergies Allergy Verified 05/10/22 09:51 - Social History Does the pt smoke?: No Smoking Status: Never smoker Does the pt drink ETOH?: No Does the pt have substance abuse?: No - Immunizations Immunizations are current?: Yes PD ED PE NORMAL - Vitals Vital signs reviewed: Yes - General General: Alert and oriented X 3, No acute distress, Well developed/nourished - HEENT HEENT: PERRL, Moist mucous membranes - Neck Neck: Supple, no meningeal sign - Cardiac Cardiac: RRR, No murmur, No rub, Strong equal pulses - Respiratory Respiratory: No respiratory distress, Clear bilaterally - Abdomen Abdomen: Soft, Non tender, Non distended - Back Back: No CVA TTP, No spinal TTP - Derm Derm: Warm and dry - Extremities Extremities: No edema, No calf tenderness / cord - Neuro Neuro: Alert and oriented X 3 - Psych Psych: Normal mood, Normal affect Results - Vitals Vitals: Vital Signs - 24 hr 05/10/22 05/10/22 05/10/22 09:44 13:49 14:39 Temperature 37.7 C Heart Rate 86 68 79 Respiratory 18 30 H 25 H Rate Blood Pressure 118/56 L 105/68 122/71 O2 Saturation 97 100 100 Oxygen O2 Source Room air - EKG (time done) 0952 Rate: Rate (enter#) (81) Rhythm: NSR [place]: Normal Intervals: Normal [place] QRS: Normal Ischemia: Normal ST segments - Labs Labs: Laboratory Tests 05/10/22 05/10/22 05/10/22 09:46 10:04 10:04 WBC 9.4 RBC 3.89 L Hgb 12.5 L Hct 38.2 L MCV 98.2 H MCH 32.1 H MCHC 32.7 RDW 12.3 Plt Count 300 MPV 10.0 Neut # (Auto) 7.5 H Lymph # (Auto) 0.8 L [place] # (Auto) 1.0 Eos # (Auto) 0.1 Baso # (Auto) 0.0 Absolute Nucleated RBC 0.00 Nucleated RBC % 0.0 Sodium 135 Potassium 4.1 Chloride 97 L Carbon Dioxide 29 Anion Gap 9.0 BUN 16 Creatinine 1.1 Estimated GFR (MDRD) 65 L Glucose 110 H Calcium 9.4 Total Bilirubin 0.8 AST 17 ALT 13 Alkaline Phosphatase 59 Troponin I High Sens B-Natriuretic Peptide Total Protein 7.0 Albumin 3.3 Globulin 3.7 Albumin/Globulin Ratio 0.9 L Lipase 31 Nasal Adenovirus (PCR) NOT DETECTED Nasal B. parapertussis DNA (PCR) NOT DETECTED Nasal Coronavir 229E PCR NOT DETECTED Nasal Coronavir HKU1 PCR NOT DETECTED Nasal Coronavir NL63 PCR NOT DETECTED Nasal Coronavir OC43 PCR NOT DETECTED Nasal Enterovir/Rhinovir PCR NOT DETECTED Nasal Influenza B PCR NOT DETECTED Nasal Influenza A PCR NOT DETECTED Nasal Parainfluen 1 PCR NOT DETECTED Nasal Parainfluen 2 PCR NOT DETECTED Nasal Parainfluen 3 PCR NOT DETECTED Nasal Parainfluen 4 PCR NOT DETECTED Nasal RSV (PCR) NOT DETECTED Nasal B.pertussis DNA PCR NOT DETECTED Nasal C.pneumoniae (PCR) NOT DETECTED Nitin Human Metapneumo PCR NOT DETECTED Nasal M.pneumoniae (PCR) NOT DETECTED Nasal SARS-CoV-2 (PCR) NOT DETECTED 05/10/22 05/10/22 10:04 10:04 WBC RBC Hgb Hct MCV MCH MCHC RDW Plt Count MPV Neut # (Auto) Lymph # (Auto) [place] # (Auto) Eos # (Auto) Baso # (Auto) Absolute Nucleated RBC Nucleated RBC % Sodium Potassium Chloride Carbon Dioxide Anion Gap BUN Creatinine Estimated GFR (MDRD) Glucose Calcium Total Bilirubin AST ALT Alkaline Phosphatase Troponin I High Sens 3.6 B-Natriuretic Peptide 211 H Total Protein Albumin Globulin Albumin/Globulin Ratio Lipase Nasal Adenovirus (PCR) Nasal B. parapertussis DNA (PCR) Nasal Coronavir 229E PCR Nasal Coronavir HKU1 PCR Nasal Coronavir NL63 PCR Nasal Coronavir OC43 PCR Nasal Enterovir/Rhinovir PCR Nasal Influenza B PCR Nasal Influenza A PCR Nasal Parainfluen 1 PCR Nasal Parainfluen 2 PCR Nasal Parainfluen 3 PCR Nasal Parainfluen 4 PCR Nasal RSV (PCR) Nasal B.pertussis DNA PCR Nasal C.pneumoniae (PCR) Nitin Human Metapneumo PCR Nasal M.pneumoniae (PCR) Nasal SARS-CoV-2 (PCR) - Rads (name of study) cxr Radiology: Final report received, EMP read contemporaneously, See rad report (Mild bibasilar atelectasis, small bilateral pleural effusions. ) PD MEDICAL DECISION MAKING - ED course Complexity details: reviewed results, re-evaluated patient, considered differential, d/w patient, d/w family ED course: Patient is a 76-year-old male who presents to the emergency department with cough for the past 3 to 4 weeks. He states that this started after being diagnosed with pericarditis. Records were obtained from [facility]. He had a small pericardial effusion at that time. He has since followed up with his incident response specialist at [facility], . He is still on colchicine. He states nobody is giving him anything for his cough. No fevers. No chills. No pneumonia. Does have small bilateral pleural effusions, this could be causing the cough. Formal cardiac echo was not available today. Therefore an informal bedside echo was performed. There are no signs of tamponade. Does have a small pericardial effusion. Patient does not have any jugular venous distention. Does not have any symptoms of tamponade on exam. No dyspnea or shortness of breath. Days with cardiology on-call, Dr. Lowe, [facility]. We will start the patient on a small dose of Lasix and see if this improves his symptoms. We will also prescribe cough medication for home. The patient will follow up with his incident response specialist and his PCP this week. Patient will return if he worsens. Patient counseled regarding signs and symptoms for which I believe and urgent re-evaluation would be necessary. Patient with good understanding of and agreement to plan and is comfortable going home at this time This document was made in part using voice recognition software. While efforts are made to proofread this document, sound alike and grammatical errors may occur. Departure - Departure Disposition: 01 Home, Self Care Clinical Impression: Pleural effusion, Pericardial effusion Cough Qualifiers: Cough type: subacute Qualified Code(s): R05.2 - Subacute cough Condition: Good Instructions: ED Chest Pain Pericarditis, ED Effusion Pleural Follow-Up: your,doctor on friday [Other] Darrian Rose MD [Physician No Access] - Within 1 week Prescriptions: Codeine Phosphate/Guaifenesin [Guaifen-Codeine 100-10 mg/5 ml] 5 ml PO Q6H PRN #60 ml PRN Reason: Cough Furosemide [Lasix] 20 mg PO DAILY #7 tablet Benzonatate [Tessalon] 200 mg PO TID PRN #30 cap PRN Reason: Cough Comments: Please follow-up with your doctor for further care. Return if you worsen. Your prescription was sent to [facility]. I spoke with Dr. Lowe on- call for cardiology today. We will start you on Lasix to see if we can decrease the fluid around her lungs and around her heart. Return for increasing difficulty breathing, chest pain or other new or worrisome symptoms. I am prescribing a short course of narcotic pain medication for you. These are potentially dangerous and addictive medications that should be used carefully. These medications may constipate you. Take an jege-vpv-uznumnt stool softener (docusate) twice daily with plenty of water while taking these medications. If you go 24 hours without a bowel movement, take lumo-dnv-qesphzr miralax, per package instructions. Do not drink or drive while taking these medications. If you received narcotic or sedating medications while in the emergency department, do not drive for 24 hours. Store this medication in a safe, secure place and out of reach of children. It is a violation of federal law to give or sell this medication to another person or to use in a manner other than prescribed. The ED will not refill narcotic prescriptions, including prescriptions lost or stolen. To dispose of unwanted medications: 1. [facility] [address] in [place] has a medication drop box. They accept prescription medications (in pill form) Friday through Friday 9:00 a.m. to 5:00 p.m. 2. The [facility] [employer] accepts prescription medications (in pill form only) for disposal year round. Call for more information. 3. Contact the [facility] for the next [facility] sponsored prescription drug collection event. , [phone], or [phone]; Discharge Date/Time: 05/10/22 14:52
[2022-05-10] MEDS ORDERED: BENZONATATE 100 MG CAPSULE PO STA (13:04)
[2022-05-10] MEDS ORDERED: FUROSEMIDE 20 MG TABLET PO STA (14:15)
[2022-05-10] MEDS ORDERED: guaiFENesin/CODEINE 5 ML UDC PO STA (14:29)
[2022-05-10 14:40] VITALS: BP 122/71
== END 2022-05-10 14:52 | disposition home or self-care (01) ==
LOC: ED 09:19
DX: J90 Pleural effusion, not elsewhere classified (principal); R05.2 Subacute cough; I31.39 Other pericardial effusion (noninflammatory); I49.1 Atrial premature depolarization; Z79.82 Long term (current) use of aspirin; Z79.899 Other long term (current) drug therapy
CPT/HCPCS: 36415; 71046; 80053; 83690; 83880; 84484; 85025; 87633; 93005; 99284; A9270

== ENCOUNTER 2022-09-11 11:12 | Outpatient (CLI) | payer MEDICARE ==
--- NOTE | 2022-09-11 13:15 | Ultrasound Report ---
PROCEDURE: Duplex Ext Veins Right INDICATIONS: RIGHT CALF PAIN TECHNIQUE: Real-time imaging, as well as color and pulse Doppler interrogation, were performed of the lower extr emity deep veins from the inguinal ligament to the popliteal fossa. COMPARISON: None. FINDINGS: The deep veins are normally compressible, and free of intraluminal thrombus. Color and pu lse Doppler demonstrate normal phasic intraluminal flow. There is normal augmentation response to di stal compression maneuver. IMPRESSION: No DVT in the right lower extremity. Reviewed by: Casa Vergara on 09/11/2022 1:13 PM PDT Approved by: Casa Vergara on 09/11/2022 1:13 PM PDT Station ID: [id number]
== END 2022-09-11 11:13 | disposition home or self-care (01) ==
LOC: DI 11:12
PROVIDERS: ATTEND Nurse Practitioner
DX: M79.661 Pain in right lower leg (principal); I83.10 Varicose veins of unspecified lower extremity with inflammation

== ENCOUNTER 2022-11-25 16:23 | Emergency (ER) | payer MEDICARE ==
--- NOTE | 2022-11-25 17:14 | ED Physician Documentation ---
PD HPI ABD PAIN - Stated complaint Stated Complaint: ABD PX - Chief complaint Chief Complaint: Abd Pain - History obtained from History obtained from: Patient, Family - History of Present Illness Timing - duration: Minutes (45) Timing - details: Gradual onset Pain level max: 6 Pain level now: 0 Quality: Cramping, Aching, Pain Location: Epigastric Radiation: No: Chest, , Lower back, Left flank, Left shoulder, Right flank, Right shoulder, Upper back Associated symptoms: Nausea. No: Fever, Vomiting, Hematemesis, Diarrhea, Constipation, Melena, Hematochezia Recently seen: Not recently seen - Additional information Additional information: 76-year-old male with epigastric abdominal pain that started about 45 minutes prior to arrival. The symptoms have now resolved. He is currently asymptomatic. He states that the pain was epigastric. Nothing seems to make it better or worse. Nonradiating. He states he had some nausea as well. He ate a chicken sandwich for lunch at [employer]. Did not radiate to the chest. He does have a history of a cardiac stent that was placed in 2002. No shortness of breath. No chest pain or diaphoresis. Patient states that this feels different than his prior episode of pericarditis and feels different than his heart attacks. He states that it feels more like reflux. Review of Systems Constitutional: denies: Fever, Chills Ears: denies: Ear pain Nose: denies: Rhinorrhea / runny nose, Congestion GI: denies: Hematemesis, Bloody / black stool Skin: denies: Rash Musculoskeletal: denies: Neck pain, Back pain Neurologic: denies: Headache PD PAST MEDICAL HISTORY - Past Medical History Cardiovascular: High cholesterol, Angina, Atrial fibrillation Endocrine/Autoimmune: HyPOthyroidism GI: GERD - Past Surgical History Past Surgical History: Yes Cardiovascular: Coronary stent - Present Medications Home Medications: Ambulatory Orders Medication Instructions Recorded Confirmed Aspirin Chewable [[facility] 81 mg PO DAILY 08/23/20 08/23/20 Aspirin] Atorvastatin Calcium 40 mg PO DAILY 08/23/20 08/23/20 Levothyroxine [Synthroid] 25 mcg PO QDAC 08/23/20 08/23/20 Pantoprazole Sodium [Protonix] 40 mg PO DAILY 08/23/20 08/23/20 Benzonatate [Tessalon] 200 mg PO TID PRN #30 cap 05/10/22 Codeine Phosphate/Guaifenesin 5 ml PO Q6H PRN #60 ml 05/10/22 [Guaifen-Codeine 100-10 mg/5 ml] Furosemide [Lasix] 20 mg PO DAILY #7 tablet 05/10/22 Esomeprazole Magnesium [Nexium] 40 mg PO DAILY #30 cap 11/25/22 Sucralfate [Carafate] 1 gm PO ACHS #60 tablet 11/25/22 - Allergies Allergies/Adverse Reactions: Allergies Allergy/AdvReac Type Severity Reaction Status Date / Time No Known Drug Allergies Allergy Verified 11/25/22 16:37 - Social History Does the pt smoke?: No Smoking Status: Never smoker Does the pt drink ETOH?: No Does the pt have substance abuse?: No - Immunizations Immunizations are current?: Yes PD ED PE NORMAL - Vitals Vital signs reviewed: Yes - General General: Alert and oriented X 3, No acute distress - HEENT HEENT: Moist mucous membranes - Neck Neck: Supple, no meningeal sign - Cardiac Cardiac: RRR, Strong equal pulses - Respiratory Respiratory: No respiratory distress, Clear bilaterally - Abdomen Abdomen: Normal bowel sounds, Soft, Non distended, Other (Minimally tender to palpation epigastric and left upper quadrant. There is no tenderness in the right upper quadrant. Negative Bueno sign. No peritoneal signs. Otherwise benign abdominal exam) - Back Back: No CVA TTP, No spinal TTP - Derm Derm: Warm and dry - Extremities Extremities: No edema, No calf tenderness / cord - Neuro Neuro: Alert and oriented X 3 - Psych Psych: Normal mood, Normal affect Results - Vitals Vitals: Vital Signs - 24 hr 11/25/22 11/25/22 11/25/22 16:32 16:39 18:37 Temperature 36.5 C Heart Rate 50 L 50 L 55 L Respiratory 14 14 16 Rate Blood Pressure 140/77 H 140/77 H 129/65 O2 Saturation 100 100 100 Oxygen O2 Source Room air - EKG (time done) 1635 EKG releavant findings:: EKG personally interpreted by author of this note. Relevant findings are: Rate: Rate (enter#) (49) Rhythm: Sinus bradycardia [place]: Normal Intervals: Normal [place] QRS: Normal Ischemia: Normal ST segments - Labs Labs: Laboratory Tests 11/25/22 11/25/22 11/25/22 17:23 17:23 17:23 WBC 4.8 RBC 3.96 L Hgb 13.1 L Hct 39.2 L MCV 99.0 H MCH 33.1 H MCHC 33.4 RDW 13.3 Plt Count 212 MPV 10.8 Neut # (Auto) 3.1 Lymph # (Auto) 1.1 L [place] # (Auto) 0.4 Eos # (Auto) 0.1 Baso # (Auto) 0.0 Absolute Nucleated RBC 0.00 Nucleated RBC % 0.0 Sodium 140 Potassium 4.3 Chloride 106 Carbon Dioxide 30 Anion Gap 4.0 L BUN 20 Creatinine 1.3 H Estimated GFR (MDRD) 54 L Glucose 119 H Calcium 9.2 Total Bilirubin 0.7 AST 31 ALT 20 Alkaline Phosphatase 65 Troponin I High Sens < 2.3 L Total Protein 6.3 L Albumin 3.6 Globulin 2.7 Albumin/Globulin Ratio 1.3 Lipase 38 - Rads (name of study) cxr Relevant Findings:: Final report received, See rad report PD Medical Decision Making - ED course Complexity details: reviewed results, re-evaluated patient, considered differential, d/w patient, d/w family ED course: No acute findings on chest x-ray. No significant abnormalities on CBC, ER abdominal panel. Negative high-sensitivity troponin. Normal lipase. Normal liver tests. He is not symptomatic in the emergency department, abdomen is soft, nontender nondistended on serial exam. Possible gastritis? The pain did start after eating a fried chicken sandwich. He states that he has had this pain a few times over the past few months, normally after eating. We will place him on a PPI and Carafate for home. We will have him follow-up with his doctor for an endoscopy. Tolerating p.o. without difficulty here. No fevers. No vomiting. Patient counseled regarding signs and symptoms for which I believe and urgent re-evaluation would be necessary. Patient with good understanding of and agreement to plan and is comfortable going home at this time This document was made in part using voice recognition software. While efforts are made to proofread this document, sound alike and grammatical errors may occur. Departure - Departure Disposition: 01 Home, Self Care Clinical Impression: Abdominal pain Qualifiers: Abdominal location: epigastric Qualified Code(s): R10.13 - Epigastric pain Condition: Good Instructions: ED PUD Vs Gastritis, ED Abdominal Pain Unkn Cause Male Follow-Up: Cynthia Soares ARNP [Primary Care Provider] - Within 1 week Prescriptions: Sucralfate [Carafate] 1 gm PO ACHS #60 tablet Esomeprazole Magnesium [Nexium] 40 mg PO DAILY #30 cap Comments: Please follow-up with your doctor for further care. Please return if you worsen. Your laboratory testing does not show any acute significant abnormalities today. Your EKG and troponin do not show evidence of a heart attack. Your pancreas and liver tests are normal. Your doctor may want to refer you for an endoscopy to confirm gastritis versus ulcer. Your prescriptions were sent to [facility] in [place] Please avoid fried foods, spicy foods, caffeine, anti-inflammatory medication such as Motrin or Aleve. Discharge Date/Time: 11/25/22 19:56
[2022-11-25 17:34] LABS: BASOPHILS % (AUTO) 0.6 %; EOSINOPHILS # (AUTO) 0.1 10^3/uL (0.0-0.7); EOSINOPHILS % (AUTO) 1.9 %; HCT - HEMATOCRIT 39.2 % (42.0-52.0); HGB - HEMOGLOBIN 13.1 g/dL (14.0-18.0); LYMPHOCYTES # (AUTO) 1.1 10^3/uL (1.5-3.5); LYMPHOCYTES % (AUTO) 23.7 %; MEAN CORPUSCULAR HEMOGLOBIN 33.1 pg (27.0-31.0); MEAN CORPUSCULAR HGB CONC 33.4 g/dL (32.0-36.0); MEAN PLATELET VOLUME 10.8 fL (7.4-11.4); MONOCYTES # (AUTO) 0.4 10^3/uL (0.0-1.0); NEUTROPHILS # (AUTO) 3.1 10^3/uL (1.5-6.6); NEUTROPHILS % (AUTO) 64.6 %; PLT - PLATELET COUNT 212 10^3/uL (130-450); RED BLOOD COUNT 3.96 10^6/uL (4.70-6.10); RED CELL DISTRIBUTION WIDTH 13.3 % (12.0-15.0); WHITE BLOOD COUNT 4.8 x10^3/uL (4.8-10.8)
[2022-11-25 17:50] LABS: ALBUMIN 3.6 g/dL (3.2-5.5); ALBUMIN/GLOBULIN RATIO 1.3 (1.0-2.2); BILIRUBIN,TOTAL 0.7 mg/dL (0.2-1.0); CALCIUM 9.2 mg/dL (8.5-10.3); CREATININE 1.3 mg/dL (0.6-1.2); POTASSIUM 4.3 mmol/L (3.5-5.0); TOTAL PROTEIN 6.3 g/dL (6.7-8.2)
--- NOTE | 2022-11-25 17:50 | XRAY Report ---
PROCEDURE: Chest 1 View X-Ray INDICATIONS: Chest Pain TECHNIQUE: One view of the chest was acquired. COMPARISON: None. FINDINGS: Surgical changes and devices: Chest x-ray 05/10/2022 Lungs and pleura: No pleural effusions or pneumothorax. Lungs are clear. Mediastinum: Mediastinal contours appear normal. Heart size is enlarged. Bones and chest wall: No suspicious bony lesions. Overlying soft tissues appear unremarkable. IMPRESSION: No acute cardiopulmonary process. Reviewed by: Marta Wray MD on 11/25/2022 5:48 PM PDT Approved by: Marta Wray MD on 11/25/2022 5:48 PM PDT Station ID: [id number]
[2022-11-25 18:41] VITALS: BP 129/65
[2022-11-25] MEDS ORDERED: SUCRALFATE 1 GM/10 ML UDC PO STA (19:32)
[2022-11-25] MEDS ORDERED: FAMOTIDINE 20 MG TABLET PO STA (19:32)
== END 2022-11-25 19:56 | disposition home or self-care (01) ==
LOC: ED 16:23
DX: R10.13 Epigastric pain (principal)
CPT/HCPCS: 36415; 71045; 80053; 83690; 84484; 85025; 93005; 99284; A9270

== ENCOUNTER 2022-12-13 10:22 | Outpatient (CLI) | payer MEDICARE ==
[2022-12-13 10:46] LABS: ALBUMIN 3.7 g/dL (3.2-5.5); BILIRUBIN,DIRECT 0.1 mg/dL (0.1-0.5); BILIRUBIN,TOTAL 1.1 mg/dL (0.2-1.0); TOTAL PROTEIN 6.6 g/dL (6.7-8.2)
== END 2022-12-13 10:23 | disposition home or self-care (01) ==
LOC: LAB 10:22
PROVIDERS: ATTEND Nurse Practitioner
DX: B35.1 Tinea unguium (principal)
CPT/HCPCS: 36415; 80076

== ENCOUNTER 2023-04-07 10:01 | Outpatient (CLI) | payer MEDICARE ==
[2023-04-07 10:12] LABS: HCT - HEMATOCRIT 41.6 % (42.0-52.0); HGB - HEMOGLOBIN 14.1 g/dL (14.0-18.0); MEAN CORPUSCULAR HEMOGLOBIN 33.6 pg (27.0-31.0); MEAN CORPUSCULAR HGB CONC 33.9 g/dL (32.0-36.0); MEAN PLATELET VOLUME 10.3 fL (7.4-11.4); RED BLOOD COUNT 4.2 10^6/uL (4.70-6.10); RED CELL DISTRIBUTION WIDTH 12.8 % (12.0-15.0); WHITE BLOOD COUNT 5.6 x10^3/uL (4.8-10.8)
[2023-04-07 10:30] LABS: ALT ALANINE AMINOTRANSFERASE 12 IU/L (10-60); AST ASPARTATE AMINOTRANSFERASE 17 IU/L (10-42); BUN - BLOOD UREA NITROGEN 20 mg/dL (6-20); CALCIUM 9.8 mg/dL (8.5-10.3); CARBON DIOXIDE - CO2 33 mmol/L (21-32); CHLORIDE 104 mmol/L (101-111); CHOL/HDL RATIO 3.2 (<5.0); CHOLESTEROL 145 mg/dL; CK- CREATINE KINASE 47 IU/L (30-223); CREATININE 1.2 mg/dL (0.6-1.3); GFR - MDRD 59 (>89); GLUCOSE 92 mg/dL (74-104); HDL CHOLESTEROL 46 mg/dL; LDL CHOLESTEROL,CALCULATED 80 mg/dL; LDL CHOLESTEROL,DIRECT 82 mg/dL (75-193); LDL/HDL RATIO 1.7 (<3.6); POTASSIUM 4.4 mmol/L (3.5-4.5); SODIUM 139 mmol/L (135-145); TRIGLYCERIDES 95 mg/dL (48-352); VLDL CHOLESTEROL 19 mg/dL
== END 2023-04-07 10:02 | disposition home or self-care (01) ==
LOC: LAB 10:01
PROVIDERS: ATTEND Internal Medicine Cardiovascular Disease
DX: I31.9 Disease of pericardium, unspecified (principal); I48.0 Paroxysmal atrial fibrillation; R00.1 Bradycardia, unspecified; E78.5 Hyperlipidemia, unspecified; I25.10 Atherosclerotic heart disease of native coronary artery without angina pectoris
CPT/HCPCS: 36415; 80048; 80061; 82550; 83721; 84450; 84460; 85027